=== PATIENT | male | born 1995 | race Hispanic/Latino ===

== ENCOUNTER 2018-02-03 17:18 | Emergency (ER) | payer OTHER ==
[~2018-02-03 17:18] MED LIST: MOTRIN800 MG PO
--- NOTE | 2018-02-03 17:32 | ED HAND/WRIST INJURY COMPLAINT ---
History of Present Illness General Chief Complaint: Hand or Wrist Injury Stated Complaint: L HAND MIDDLE FINGER INJURY Source: patient Exam Limitations: no limitations Vital Signs & Intake/Output Vital Signs & Intake/Output Vital Signs Date Time Temp Pulse Resp B/P B/P Pulse O2 O2 Flow FiO2 Mean Ox Delivery Rate 02/03 1847 97.4 74 15 127/82 98 Room Air Room Air 02/03 1731 97.7 96 16 133/91 97 Room Air ED Intake and Output 02/04 0000 02/03 1200 Intake Total 0 Output Total Balance 0 Intake, Oral 0 Allergies Coded Allergies: NO KNOWN ALLERGIES (08/02/15) Reconcile Medications Ibuprofen (Motrin) 800 MG TAB 1 TAB PO TID PRN PAIN AND INFLAMMATION Triage Nurses Notes Reviewed? yes Duration: day(s):, constant, continues in ED Timing: recent history Pain/Injury Location: Left: 3rd finger. HPI: 22-year-old male comes into the emergency room for further evaluation of left middle finger pain. Patient reports that about a week ago his middle finger kind of hit a wall. He denies punching him. He's had swelling and pain has been persistent. He put himself in a finger splint and thought it would get better but it hasn't so he comes in for further evaluation. (Jude Rouse) Past History Travel History Traveled to [place] past 21 day No Medical History Any Pertinent Medical History? see below for history Neurological: NONE EENT: NONE Cardiovascular: NONE Respiratory: NONE Gastrointestinal: NONE Hepatic: NONE Renal: NONE Musculoskeletal: NONE Psychiatric: NONE Endocrine: NONE Blood Disorders: NONE Cancer(s): NONE PROCESS HELPER/Reproductive: NONE Tetanus Vaccine: 08/02/15 Surgical History Surgical History: non-contributory Psychosocial History What is your primary language Faroese Tobacco Use: Current Not Daily Family History Hx Contributory? No (Jude Rouse) Review of Systems Review of Systems Constitutional: Reports: no symptoms. EENTM: Reports: no symptoms. Respiratory: Reports: no symptoms. Cardiovascular: Reports: no symptoms. GI: Reports: no symptoms. Genitourinary: Reports: no symptoms. Musculoskeletal: Reports: see HPI. Skin: Reports: no symptoms. Neurological/Psychological: Reports: no symptoms. Hematologic/Endocrine: Reports: no symptoms. Immunologic/Allergic: Reports: no symptoms. All Other Systems: Reviewed and Negative (Jude Rouse) Physical Exam Physical Exam General Appearance: well developed/nourished, mild distress Head: atraumatic Eyes: Bilateral: normal appearance. Ears, Nose, Throat: normal ENT inspection, hearing grossly normal Neck: normal inspection Cardiovascular/Respiratory: no respiratory distress Back: normal inspection Hand Left: 3rd finger, limited range of motion, some ecchymosis to the middle phalanx of the third finger, Hand Right: normal inspection Neurologic/Tendon: normal sensation, normal motor functions, normal tendon functions, responds to pain, no evidence tendon injury, no pulse deficit Skin: intact, normal color, warm/dry (Jude Rouse) Progress Differential Diagnosis: dislocation, fracture, sprain, tendon injury Plan of Care: Orders Procedure Date/time Status XRY-FINGERS, LEFT 02/03 1731 Active Diagnostic Imaging: Viewed by Me: Radiology Read. Discussed w/RAD: Radiology Read. Radiology Impression: PATIENT: NGOZI MCCLENDON PRESENT AGE: 22 PATIENT ACCOUNT NO: [id number] : 97 LOCATION: [facility] ORDERING PHYSICIAN: Jude DOVE SERVICE DATE: 02/03/18-1730 EXAM TYPE : RAD - XRY-FINGERS, LEFT EXAMINATION: XR FINGER, LEFT CLINICAL INFORMATION: Pain after middle finger injury. COMPARISON: None TECHNIQUE: 3 views of the left middle finger. FINDINGS: Alignment is normal. No acute fracture or subluxation. Minimal soft tissue swelling around the third PIP joint. There are no radiopaque foreign bodies in the visualized hand or wrist. There is slight flexion of the PIP joint and slight hyperextension of the DIP joint of the third digit. Query of this configuration is secondary to the recent trauma. IMPRESSION: - No acute fracture or malalignment. 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 DICTATED BY: Alvarez Cotton MD DATE/TIME DICTATED:02/03/181803 CORE BLOWER:DORIS DATE/TIME TRANSCRIBED:02/03/181803 CONFIDENTIAL, DO NOT COPY WITHOUT APPROPRIATE AUTHORIZATION. <Electronically signed in Other Vendor System> SIGNED BY: Alvarez Cotton MD 02/03/181811 (Jude Rouse) Departure Departure Disposition: HOME OR SELF CARE Condition: Stable Clinical Impression Primary Impression: Finger sprain Secondary Impressions: Injury of tendon of finger Referrals: David MILLARD,[facility] (PCP/Family) Abdiel MILLARD,[place] Additional Instructions: Stain finger splint. Follow-up with plastic surgeon. Return if any concerns worsening symptoms. Please go over all results of today's visit with your primary care doctor. Contact your primary care doctor to let them know you were here in the emergency room. There may be nonspecific findings which may not be related to your visit today here in the emergency room but may require further evaluation and chronic monitoring by your primary care doctor. If you had a laceration today the chance of foreign body always remains. You should follow-up with your primary care doctor for recheck in 3-5 days for a wound check. If you had an x-ray done there is a chance that a fracture could have been missed on initial read and you should follow-up with your primary care doctor for repeat x-rays if symptoms persist. If your blood pressure was elevated here in the emergency room please have rechecked by [facility] primary care doctor within the next 48. If you were prescribed a narcotic here in the emergency room or any type of controlled substances you're not allowed to drive while taking this medication or operate any type of heavy machinery. Narcotics can make you feel lightheaded dizziness nausea and can cause constipation. 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 Thank you for choosing [facility] emergency room. Please return to the emergency room immediately if you have any other concerns worsening of symptoms. Departure Forms: Customer Survey General Discharge Information Comments 02/03/18 Patient clinically looks well. No evidence of fracture. Possible tendon injury. Patient was kept in finger splint that he already had on and was told to follow-up with plastic surgeon provided. Return if any other concerns worsening symptoms. (Landon DOVE,Jude) PA/TEA BAG PACKER Co-Sign Statement Statement: ED Attending supervision documentation- I saw and evaluated the patient. I have also reviewed all the pertinent lab results and diagnostic results. I agree with the findings and the plan of care as documented in the PA's/TEA BAG PACKER's documentation. x I have reviewed the ED Record and agree with the PA's/TEA BAG PACKER's documentation. [] Additions or exceptions (if any) to the PAs/TEA BAG PACKER's note and plan are summarized below: [] (Saulo MILLARD,Cr)
--- NOTE | 2018-02-03 18:12 | RADIOLOGY REPORT ---
EXAMINATION: XR FINGER, LEFT CLINICAL INFORMATION: Pain after middle finger injury. COMPARISON: None TECHNIQUE: 3 views of the left middle finger. FINDINGS: Alignment is normal. No acute fracture or subluxation. Minimal soft tissue swelling around the third PIP joint. There are no radiopaque foreign bodies in the visualized hand or wrist. There is slight flexion of the PIP joint and slight hyperextension of the DIP joint of the third digit. Query of this configuration is secondary to the recent trauma. IMPRESSION: - No acute fracture or malalignment. 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
[2018-02-03 18:47] VITALS: BP 127/82
== END 2018-02-03 18:54 ==
LOC: ERH 17:18
DX: S63.613A Unspecified sprain of left middle finger, initial encounter (principal); W22.01XA Walked into wall, initial encounter; Y92.9 Unspecified place or not applicable; Y93.9 Activity, unspecified; F17.200 Nicotine dependence, unspecified, uncomplicated
CPT/HCPCS: 73140-LT